=== PATIENT | female | born 1965 | race Caucasian/White ===

== ENCOUNTER 2020-05-26 14:09 | Outpatient (CLI) | payer OTHER | END 2020-05-26 23:59 | disposition home or self-care (01) | LOC: CFH 14:09 | PROVIDERS: ATTEND Obstetrics & Gynecology Gynecology | DX: R92.2 Inconclusive mammogram (principal); N63.10 Unspecified lump in the right breast, unspecified quadrant | CPT/HCPCS: 76642; 77065 ==